=== PATIENT | female | born 1945 | race Hispanic/Latino ===

== ENCOUNTER 2017-05-28 09:00 | Outpatient (CLI) | payer MEDICARE ==
--- NOTE | 2017-05-28 10:42 | RAD ---
TWO VIEWS CHEST: COMPARISON: 06/03/16. HISTORY: Wheezing, asthma, and shortness of breath. FINDINGS: Normal cardiac silhouette. The pulmonary vessels and hilum are normal. Costophrenic angles are juanito r. The lungs are hyperinflated. There are chronic changes. No consolidation or mass. No pneumotho rax. There is diffuse bony demineralization. Stable sclerosis of the proximal right humerus. IMPRESSION: 1. Hyperinflation. 2. Chronic changes. POS: [facility]
== END 2017-05-28 09:01 | disposition home or self-care (01) ==
LOC: RAD 09:00
PROVIDERS: ATTEND Specialist
DX: J45.41 Moderate persistent asthma with (acute) exacerbation (principal); R91.8 Other nonspecific abnormal finding of lung field
CPT/HCPCS: 71046

== ENCOUNTER 2017-05-30 09:24 | Emergency (ER) | payer MEDICARE ==
[2017-05-30 10:03] LABS: #Basophils 0.1 thou/uL (0.0-0.2); #Eosinphils 0.2 thou/uL (0.0-0.7); #Lymphocytes 1.7 thou/uL (1.20-3.40); #Monocytes 0.7 thou/uL (0.11-0.59); %Basophils 1.4 % (0.0-1.0); %Lymphocytes 21.6 % (21.0-51.0); %Monocytes 9.3 % (0.0-10.0); %Neutrophils 64.7 % (42.0-75.0); Hemoglobin 11.9 g/dL (12.0-16.0); Mean Corpuscular HGB CONC 32.1 g/dL (32.0-36.0); Mean Corpuscular Hemoglobin 29.1 pg (27.0-31.0); Mean Corpuscular Volume 90.7 fl (81.0-99.0); Mean Platelet Volume 7.7 fL (7.4-10.4); Platelet Count 297 thou/uL (130-400); RBC Distribution Width 12.5 % (11.5-14.5); Red Blood Cell (RBC) Count 4.09 mill/uL (4.20-5.40); White Blood Cell (WBC) Count 7.7 thou/uL (4.8-10.8)
[2017-05-30 10:18] LABS: ALT (SGPT) 9 U/L (8-55); AST (SGOT) 14 U/L (5-34); Albumin 3.9 g/dL (3.4-4.8); Alkaline Phosphatase 67 U/L (40-150); Anion Gap 10 mmol/L (10-20); BUN (Urea Nitrogen) 9 mg/dL (9.8-20.1); Bilirubin, Total 0.5 mg/dL (0.2-1.2); CK (CPK) 128 U/L (29-168); Calc. Creatinine Clearance 0 mL/min (70-130); Calcium 9.4 mg/dL (7.8-10.44); Carbon Dioxide 28 mmol/L (23-31); Chloride 102 mmol/L (98-107); Estimated GFR-MDRD 84; Globulin 3.8 g/dL (2.4-3.5); Glucose 115 mg/dL (83-110); Lipase 20 U/L (8-78); Potassium 3.9 mmol/L (3.5-5.1); Protein, Total 7.7 g/dL (6.0-8.3); Sodium 136 mmol/L (136-145)
[2017-05-30 10:27] LABS: CKMB 2.1 ng/mL (0-6.6); Troponin I Less than 0.010 ng/mL (< 0.028)
--- NOTE | 2017-05-30 12:25 | RAD ---
PORTABLE CHEST ONE VIEW: 05/30/2017 9:59 a.m. HISTORY: Chest pain. Cough. Congestion. COMPARISON: 05/28/2017 FINDINGS: The heart size is normal. The aorta is tortuous. The lungs are well expanded without focal areas of consolidation, pneumothorax, or pleural effusions. Chronic changes are again seen. Sclerotic torrez es in the right proximal humerus are stable. IMPRESSION: No radiographic evidence of acute cardiopulmonary process. POS: [facility]
--- NOTE | 2017-06-04 15:47 | EKG ---
Test Reason : Blood Pressure : / mmHG Vent. Rate : 094 BPM Atrial Rate : 094 BPM P-R Int : 182 ms QRS Dur : 156 ms QT Int : 412 ms P-R-T Axes : 018 -23 077 degrees QTc Int : 515 ms Normal sinus rhythm Left bundle branch block Abnormal ECG Confirmed by MAGDALENA James, ENZO ([id number]), web editor KERI RAINEY ([id number]) on 06/04/2017 3:46:27 PM Referred By: Confirmed By:ENZO NICHOLS M.D.
== END 2017-05-30 11:49 | disposition home or self-care (01) ==
LOC: ERS 09:24
DX: J40 Bronchitis, not specified as acute or chronic (principal); R59.0 Localized enlarged lymph nodes; E78.5 Hyperlipidemia, unspecified; I10 Essential (primary) hypertension; Z79.899 Other long term (current) drug therapy
CPT/HCPCS: 36415; 71045; 80053; 82550; 82553; 83690; 83880; 84484; 85025; 93005; 94760

== ENCOUNTER 2017-12-06 09:09 | Outpatient (CLI) | payer MEDICARE ==
--- NOTE | 2017-12-06 10:45 | BD ---
BONE DENSITOMETRY: INDICATION: A 72-year-old female for postmenopausal osteoporosis screening. FINDINGS: Lumbar Spine: BMD (g/cm2) L1 0.914 T-Score: -0.7 L2 9,733 T-Score: -1.8 L3 0.864 T-Score: -2.0 L4 0.912 T-Score: -1.4 L1-L4 0.882 T-Score: -1.5 Comparison to multiple prior yearly bone mineral density studies made. Lumbar spine density in 2017 was recorded at 0.912. In 2015 0.899, in 2014 0.873, in 2013 0.832. Femoral Neck: 0.717 T-Score: -1.2 Total Femur: 0.868 T-Score: -0.6 Femoral neck density in 2017 0.738. In 2015 0.716, in 2014 0.713, in 2013 0.709. Impression: Bone mineral density of the lumbar spine and femoral neck continues to show osteopenia. Slight loss of density from 2017, although densities are stable from 2016. Ten-year fracture risk for a major osteoporotic fracture 5.4%. Hip fracture: 0.8%. POS: [facility]
== END 2017-12-06 09:10 | disposition home or self-care (01) ==
LOC: BICMAMMO 09:09
PROVIDERS: ATTEND Family Medicine
DX: Z12.31 Encounter for screening mammogram for malignant neoplasm of breast (principal); Z13.820 Encounter for screening for osteoporosis; M85.89 Other specified disorders of bone density and structure, multiple sites; R92.1 Mammographic calcification found on diagnostic imaging of breast; Z80.3 Family history of malignant neoplasm of breast
CPT/HCPCS: 77063; 77067; 77080

== ENCOUNTER 2018-11-06 12:30 | Outpatient (CLI) | payer MEDICARE ==
--- NOTE | 2018-11-06 14:45 | RAD ---
TWO VIEW CHEST: 11/06/18 COMPARISON: 05/30/17 INDICATION: Chest wall contusion. FINDINGS: There is interstitial opacification of the lungs bilaterally. Cardiac silhouette is prominent and the re is mild prominence of the pulmonary vasculature. Patchy bibasilar densities are seen. There is sta ble sclerotic density of the proximal right humerus. Chest is otherwise similar. IMPRESSION: Findings of CHF. Reference separate dictation from left rib report for additional detail. POS: [facility]
--- NOTE | 2018-11-06 14:45 | RAD ---
LEFT RIB SERIES: Date: 11/06/18 INDICATION: Chest wall contusion. Pain. FINDINGS: No displaced left rib fracture is visualized. No underlying pleural based density of significance wit hin the left hemithorax. IMPRESSION: No displaced left rib fracture. POS: [facility]
== END 2018-11-06 12:31 | disposition home or self-care (01) ==
LOC: BICRAD 12:30
PROVIDERS: ATTEND Family Medicine
DX: S20.219A Contusion of unspecified front wall of thorax, initial encounter (principal); R07.89 Other chest pain; I50.9 Heart failure, unspecified
CPT/HCPCS: 71046

== ENCOUNTER 2018-12-10 08:49 | Outpatient (CLI) | payer MEDICARE ==
--- NOTE | 2018-12-10 09:43 | BD ---
EXAM: DEXA bone density examination HISTORY: 73-year-old postmenopausal female for screening COMPARISON: None FINDINGS: L1--bone mineral density 0.974 g/sq cm; T score -0.1 L2--bone mineral density 0.934 g/sq cm; T score -0.9 L3--bone mineral density 0.934 g/sq cm; T score -1.4 L4--bone mineral density 0.884 g/sq cm; T score -1.6 Total L1-L4--bone mineral density 0.928 g/sq cm; T score -1.1 Left femoral neck--bone mineral density0.716; T score -1.2 Total proximal left femur--bone mineral density 0.894; T score -0.4 IMPRESSION: Osteopenia This patient has a 10 year WHO fracture risk of a major osteoporotic fracture of 9.8% and of a hip fracture of 1.5%.
--- NOTE | 2018-12-10 09:54 | MMO ---
Bilateral MAMMO Bilat Screen [facility]. CLINICAL HISTORY: Patient is 73 years old and is seen for screening. The patient has the following family history of breast cancer: niece, at age 29, malignant (generic). The patient has no personal history of cancer. VIEWS: The views performed were: bilateral craniocaudal with tomosynthesis and bilateral mediolateral oblique with tomosynthesis. FILMS COMPARED: The present examination has been compared to prior imaging studies performed at [facility] on 10/30/2014, 11/04/2015, 12/05/2016 and 12/06/2017. This study has been interpreted with the assistance of computer-aided detection. MAMMOGRAM FINDINGS: There are scattered fibroglandular densities. There are stable benign appearing calcifications seen in both breasts. There are no suspicious masses, suspicious calcifications, or new areas of architectural distortion. IMPRESSION: THERE IS NO MAMMOGRAPHIC EVIDENCE OF MALIGNANCY. A ROUTINE FOLLOW-UP MAMMOGRAM IN 1 YEAR IS RECOMMENDED. THE RESULTS OF THIS EXAM WERE SENT TO THE PATIENT. ACR BI-RADS Category 2 - Benign finding MAMMOGRAPHY NOTE: 1. A negative mammogram report should not delay a biopsy if a dominant of clinically suspicious mass is present. 2. Approximately 10% to 15% of breast cancers are not detected by mammography. 3. Adenosis and dense breasts may obscure an underlying neoplasm. Reported by: AMY DONG MD Electonically Signed: [id number]
== END 2018-12-10 08:50 | disposition home or self-care (01) ==
LOC: BICMAMMO 08:49
PROVIDERS: ATTEND Family Medicine
DX: Z12.31 Encounter for screening mammogram for malignant neoplasm of breast (principal); M85.89 Other specified disorders of bone density and structure, multiple sites; Z80.3 Family history of malignant neoplasm of breast
CPT/HCPCS: 77063; 77067; 77080

== ENCOUNTER 2019-12-16 08:52 | Outpatient (CLI) | payer MEDICARE ==
--- NOTE | 2019-12-16 09:34 | BD ---
EXAM: DEXA bone density examination HISTORY: 74-year-old postmenopausal female for screening COMPARISON: 12/10/2018 FINDINGS: L1--bone mineral density 1.027 g/sq cm; T score 0.3 L2--bone mineral density 0.98 g/sq cm; T score -0.4 L3--bone mineral density 0.980 g/sq cm; T score -0.9 L4--bone mineral density 0.956 g/sq cm; T score -1.0 Total L1-L4--bone mineral density 0.984 g/sq cm; T score -0.6 Left femoral neck--bone mineral density0.713; T score -1.2 Total proximal left femur--bone mineral density 0.893; T score -0.4 IMPRESSION: Osteopenia. This patient has a 10 year WHO fracture risk of a major osteoporotic fracture of 5.7% and of a hip fracture of 0.9%. When compared to the prior examination, the bone density in the spine is increased approximately 6%.
--- NOTE | 2019-12-16 09:55 | MMO ---
Bilateral MAMMO Bilat Screen [facility]. CLINICAL HISTORY: Patient is 74 years old and is seen for screening. The patient has the following family history of breast cancer: niece, at age 29, malignant (generic). The patient has no personal history of cancer. VIEWS: The views performed were: bilateral craniocaudal with tomosynthesis and bilateral mediolateral oblique with tomosynthesis. FILMS COMPARED: The present examination has been compared to prior imaging studies performed at [facility] on 11/04/2015, 12/05/2016, 12/06/2017 and 12/10/2018. This study has been interpreted with the assistance of computer-aided detection. MAMMOGRAM FINDINGS: There are scattered fibroglandular densities. Cluster of microcalcifications with increasing number since prior exam retroareolar right breast. In the left breast, there are no suspicious masses, calcifications or areas of architectural distortion. IMPRESSION: FINDING IN THE RIGHT BREAST REQUIRES ADDITIONAL EVALUATION. MAGNIFICATION VIEWS ARE RECOMMENDED. THE RESULTS OF THIS EXAM WERE SENT TO THE PATIENT. ACR BI-RADS Category 0 - Incomplete: Need additional imaging evaluation. [facility] will notify the patient of the need for additional imaging services. MAMMOGRAPHY NOTE: 1. A negative mammogram report should not delay a biopsy if a dominant of clinically suspicious mass is present. 2. Approximately 10% to 15% of breast cancers are not detected by mammography. 3. Adenosis and dense breasts may obscure an underlying neoplasm. Reported by: LETA SIGALA MD Electonically Signed: [id number]
== END 2019-12-16 08:53 | disposition home or self-care (01) ==
LOC: BICMAMMO 08:52
PROVIDERS: ATTEND Family Medicine
DX: Z12.31 Encounter for screening mammogram for malignant neoplasm of breast (principal); M85.89 Other specified disorders of bone density and structure, multiple sites; Z80.3 Family history of malignant neoplasm of breast
CPT/HCPCS: 77063; 77067; 77080

== ENCOUNTER 2019-12-24 09:07 | Outpatient (CLI) | payer MEDICARE ==
--- NOTE | 2019-12-24 09:45 | MMO ---
Right Breast MAMMO Unilat Diag [facility]. CLINICAL HISTORY: Patient is 74 years old and is seen for additional evaluation requested from prior study. The patient has the following family history of breast cancer: niece, at age 29, malignant (generic). The patient has no personal history of cancer. VIEWS: The views performed were: right craniocaudal spot compression magnification; right mediolateral spot compression magnification; and right mediolateral with tomosynthesis. FILMS COMPARED: The present examination has been compared to prior imaging studies performed at [facility] on 12/05/2016, 12/06/2017, 12/10/2018 and 12/16/2019. This study has been interpreted with the assistance of computer-aided detection. MAMMOGRAM FINDINGS: There are scattered fibroglandular densities. THE CLUSTER OF CALCS IN THE RIGHT RETROAEROLAR BREAST HAVE INCRESED IN NUMBER AND APPEAR INDETERMINATE. IMPRESSION: FINDING IN THE RIGHT BREAST IS SUSPICIOUS. A STEREOTACTIC BREAST BIOPSY IS RECOMMENDED. THE RESULTS OF THIS EXAM WERE SENT TO THE PATIENT. ACR BI-RADS Category 4 - Suspicious abnormality - biopsy should be considered D/W pt and her daughter in person @ 9:40 am MAMMOGRAPHY NOTE: 1. A negative mammogram report should not delay a biopsy if a dominant of clinically suspicious mass is present. 2. Approximately 10% to 15% of breast cancers are not detected by mammography. 3. Adenosis and dense breasts may obscure an underlying neoplasm. Reported by: MALINDA CALLEJAS MD Electonically Signed: [id number]
== END 2019-12-24 09:08 | disposition home or self-care (01) ==
LOC: BICMAMMO 09:07
PROVIDERS: ATTEND Family Medicine
DX: R92.1 Mammographic calcification found on diagnostic imaging of breast (principal)
CPT/HCPCS: 77065; G0279

== ENCOUNTER → 2020-01-14 | Day surgery (SDC) | payer MEDICARE ==
--- NOTE | 2020-01-14 13:42 | MMO ---
Stereotactic guided biopsy right breast microcalcifications Surgical specimen mammography Diagnostic right mammogram post biopsy HISTORY: Abnormal mammogram. Microcalcifications. FINDINGS: After explaining the procedure and answering all questions, the microcalcification cluster at the inferior aspect of the right breast was again visualized. Sterile technique, buffered local anesthesia, stereotactic guidance, and a medial approach were used to carefully advance a 10-gauge va cuum-assisted biopsy needle to the cluster of microcalcifications. A total of 8 10-gauge core vacuum-assisted specimens were obtained and eventually submitted pathology. Surgical specimen mammogram shows microcalcifications in the tissue. Localization clip was placed in the biopsy bed. Position confirmed with stereotactic imaging. Needle was removed and hemostasis obtained using direct pressure. Postprocedure diagnostic mammogram shows heterogeneously dense fibroglandular tissue. Metallic clip r eplaces the microcalcification cluster at the mid inferior aspect of the right breast. Small pockets of gas are also present around the biopsy bed. Patient tolerated the procedure well and was dismissed in good condition. IMPRESSION : Technically successful stereotactic guided biopsy right breast microcalcifications. Pathology is pend ing.
== END ==
LOC: MAMMO 06:36
PROVIDERS: ATTEND Family Medicine
PROC: 0HBT3ZX Excision of Right Breast, Percutaneous Approach, Diagnostic (ICD-10-PCS; principal; 2020-01-14)
DX: D05.11 Intraductal carcinoma in situ of right breast (principal); D24.1 Benign neoplasm of right breast; Z88.0 Allergy status to penicillin
CPT/HCPCS: 19081; 76098; 88305; 88341; 88342; 88360

== ENCOUNTER 2020-02-05 06:23 | Outpatient (CLI) | payer MEDICARE ==
[2020-02-05 09:32] LABS: #Basophils 0.1 10x3/uL (0.0-0.2); #Eosinphils 0.3 10x3/uL (0.0-0.5); #Monocytes 0.5 10x3/uL (0.0-1.1); #Neutrophils 3.2 10x3/uL (1.5-8.4); %Eosinophils 4.6 % (0.0-6.0); %Lymphocytes 33.6 % (18.0-47.0); %Monocytes 7.9 % (0.0-10.0); %Neutrophils 52.7 % (40.0-75.0); Hemoglobin 12.3 g/dL (12.0-16.0); Mean Corpuscular HGB CONC 31.9 G/DL (32.0-36.0); Mean Corpuscular Hemoglobin 29.2 PG (27.0-33.0); Mean Corpuscular Volume 91.4 fl (80.0-100.0); Platelet Count 235 10x3/uL (130-400); RBC Distribution Width 13.8 % (11.5-14.5); Red Blood Cell (RBC) Count 4.21 10x6/uL (3.90-5.20)
[2020-02-05 10:00] LABS: Anion Gap 14 mmol/L (10-20); BUN (Urea Nitrogen) 16 mg/dL (9.8-20.1); Calc. Creatinine Clearance 0 mL/min (70-130); Calcium 9.8 mg/dL (7.8-10.44); Carbon Dioxide 25 mmol/L (23-31); Chloride 105 mmol/L (98-107); Glucose 92 mg/dL (83-110); Potassium 4.3 mmol/L (3.5-5.1); Sodium 140 mmol/L (136-145)
--- NOTE | 2020-02-05 10:33 | RAD ---
PA AND LATERAL CHEST: HISTORY: Preop. COMPARISON: 11/06/2018 study. FINDINGS: Heart size and mediastinum within normal limits. Lungs are clear of infiltrates. There are arthriti c changes of the spine. IMPRESSION: No active intrathoracic disease. POS: [facility]
[2020-02-05 22:36] LABS: SARS-CoV-2 MS2 Positive; SARS-CoV-2 N Gene Negative; SARS-CoV-2 S Gene Negative; SARS-CoV-2 by NAA Not Detected (NotDetected); SARS-CoV-2 orf1ab Negative
== END 2020-02-05 06:24 | disposition home or self-care (01) ==
LOC: LABBT 06:23
PROVIDERS: ATTEND Specialist
DX: Z01.818 Encounter for other preprocedural examination (principal); D05.11 Intraductal carcinoma in situ of right breast; Z20.828 Contact with and (suspected) exposure to other viral communicable diseases
CPT/HCPCS: 71046; 80048; 85025; 93005; U0003; 87635; 93010

== ENCOUNTER 2020-02-10 06:49 | Day surgery (SDC) | payer MEDICARE ==
[2020-02-09 10:22] VITALS: BMI 31.2
[2020-02-10] MEDS ORDERED: Levofloxacin 500 mg/D5W 100 ml Premix Bag ONE (08:08)
[2020-02-10] MEDS ORDERED: Acetaminophen 500 MG TAB ONE (08:08)
[2020-02-10] MEDS ORDERED: Ketorolac Tromethamine 30 MG/ML VIAL ONE (08:08)
[2020-02-10] MEDS ORDERED: Dexamethasone 20 MG/5 ML VIAL ONE (10:01)
[2020-02-10] MEDS ORDERED: Ondansetron PF 4 MG/2 ML Vial ONE (10:01)
[2020-02-10] MEDS ORDERED: PROPOFOL 200 MG/20 ML VIAL ONE (10:01)
[2020-02-10] MEDS ORDERED: Lidocaine 2% PF 5 ML VIAL ONE (11:18)
[2020-02-10] MEDS ORDERED: Lidocaine 1% w/Epinephrine 1:100K 20 ML VIAL ONE (11:18)
[2020-02-10] MEDS ORDERED: Bupivacaine 0.25% HCL 30 ML VIAL ONE (11:18)
[2020-02-10] MEDS ORDERED: Isosulfan Blue 50 MG/5 ML VIAL ONE (11:18)
--- NOTE | 2020-02-10 11:20 | MMO ---
EXAM: MAMMO Brst Loc Dev Mammo Guide PROVIDED CLINICAL HISTORY: Right breast cancer. COMPARISON: Mammograms on 12/16/2019 and post biopsy mammogram on 01/14/2020 TECHNIQUE: After informed consent was obtained, the biopsy marker clip in the right breast was localized in a me dial lateral projection with grid localizer in place. The area was meticulously prepped in usual fashion. Skin and subcutaneous tissues were infiltrated with buffered 1% lidocaine for local anesthes ia. A 7.5 cm Manlius localization needle and guidewire were advanced followed by medial lateral projection. CC projection was then performed. The needle was slightly withdrawn, and the wire was dep loyed. Dry sterile dressing was placed. Patient tolerated the procedure well and without immediate complication. Patient was transported to o perating room for excisional biopsy. IMPRESSION: Technically successful needle and wire localization of biopsy marker clip in the right breast.
[2020-02-10] MEDS ORDERED: Fentanyl 100 MCG/2 ML VIAL ONE (11:32)
--- NOTE | 2020-02-10 12:37 | MMO ---
MAMMO Surgial Specimen History: Breast cancer Comparison: Needle localization same day Findings: The specimen contains the clip and the needle as well as a few calcifications. Impression: Satisfactory specimen containing needle, clip, and a few calcifications. Dr. Cohen notified of findings via telephone.
--- NOTE | 2020-02-11 11:55 | OP ---
DATE OF PROCEDURE: 02/10/2020 PREOPERATIVE DIAGNOSIS: Right breast ductal carcinoma in situ. POSTOPERATIVE DIAGNOSIS: Right breast ductal carcinoma in situ. OPERATION PERFORMED: Right breast needle localized lumpectomy. ANESTHESIA: General endotracheal. INDICATIONS: The patient is a 74-year-old female. She recently had a mammogram revealing suspicious calcifications within the right breast. Stereotactic biopsy was performed with removal of all the calcifications. There was found to be low-grade ductal carcinoma in situ at this location, and completion lumpectomy was therefore recommended. Mammographic needle localization had been performed preoperatively. The patient was taken to the operating room at this time for lumpectomy. DESCRIPTION OF OPERATION: Informed consent was obtained. The patient was taken to the operating room where general endotracheal anesthesia obtained with the patient in supine position. The right breast was prepped with ChloraPrep and draped in sterile fashion so as to include the localizing needle. The needle entered the breast in a medial to lateral fashion on the medial aspect of the breast aiming more or less under the nipple-areolar complex. The breast was draped in sterile fashion. Local anesthetic was infiltrated using a mixture of 1% lidocaine with epinephrine and 0.25% Marcaine. A transverse incision was created extending laterally from the needle insertion site to the infra-areolar border. Dissection was carried through the skin and subcutaneous tissue. The needle at the skin entry was at about 6 cm from the needle tip. It was determined that the localizing clip that was the target that was about 2 cm from the tip of the needle. I therefore dissected along the needle until I was about 4 cm from the needle tip. At that point, I dissected a wide lump of tissue around the localizing needle and wire. The specimen was removed intact and tagged for orientation and submitted for specimen mammography. This did reveal that the clip was present within the lesion. I was concerned that there may have been a close anterior margin and therefore, I obtained an additional anterior margin, tagged this for orientation and submitted this as well. The clip was in the initial specimen, however. Meticulous hemostasis was obtained within the wound. It was closed in layers with 3-0 Vicryl and 4-0 Monocryl. Dermabond was placed externally. Additional local anesthetic was infiltrated during closure. There were no complications. The patient tolerated the procedure well and was taken to recovery room in stable condition. Job ID: [id number]
== END 2020-02-10 13:34 | disposition home or self-care (01) ==
LOC: SDC 06:49
PROVIDERS: ATTEND Specialist
PROC: 0HBT0ZZ Excision of Right Breast, Open Approach (ICD-10-PCS; principal; 2020-02-10)
DX: D05.11 Intraductal carcinoma in situ of right breast (principal); I10 Essential (primary) hypertension; Z79.82 Long term (current) use of aspirin; Z79.84 Long term (current) use of oral hypoglycemic drugs; Z79.899 Other long term (current) drug therapy; Z88.0 Allergy status to penicillin
CPT/HCPCS: 19281; 76098; 88305; 88307; J1100; J1885; J1956; J2001; J2405; J2704; J3010; Q9968; S0020

== ENCOUNTER 2020-12-23 08:53 | Outpatient (CLI) | payer MEDICARE | END 2020-12-23 08:54 | disposition home or self-care (01) | LOC: BICMAMMO 08:53 | PROVIDERS: ATTEND Internal Medicine Hematology & Oncology | DX: M85.89 Other specified disorders of bone density and structure, multiple sites (principal); C50.111 Malignant neoplasm of central portion of right female breast | CPT/HCPCS: 77080 ==

== ENCOUNTER 2021-01-28 11:23 | Emergency (ER) | payer MEDICARE ==
[2021-01-28] MEDS ORDERED: HYDROcodone/Acetaminophen 5/325 mg Tablet ONE (12:53)
== END 2021-01-28 13:33 | disposition home or self-care (01) ==
LOC: ERS 11:23
DX: M25.511 Pain in right shoulder (principal); E78.5 Hyperlipidemia, unspecified; I10 Essential (primary) hypertension

== ENCOUNTER 2021-02-07 09:37 | Outpatient (CLI) | payer MEDICARE | END 2021-02-07 09:38 | disposition home or self-care (01) | LOC: BICMAMMO 09:37 | PROVIDERS: ATTEND Specialist | DX: D05.11 Intraductal carcinoma in situ of right breast (principal) | CPT/HCPCS: 77066; G0279 ==

== ENCOUNTER 2021-12-26 10:45 | Outpatient (CLI) | payer MEDICARE | END 2021-12-26 10:46 | disposition home or self-care (01) | LOC: BICMAMMO 10:45 | PROVIDERS: ATTEND Internal Medicine Hematology & Oncology | DX: M85.88 Other specified disorders of bone density and structure, other site (principal); M85.852 Other specified disorders of bone density and structure, left thigh; M85.851 Other specified disorders of bone density and structure, right thigh; T38.6X5A Adverse effect of antigonadotrophins, antiestrogens, antiandrogens, not elsewhere classified, initial encounter | CPT/HCPCS: 77080 ==

== ENCOUNTER 2022-02-14 10:03 | Outpatient (CLI) | payer MEDICARE | END 2022-02-14 10:04 | disposition home or self-care (01) | LOC: BICMAMMO 10:03 | PROVIDERS: ATTEND Specialist | DX: Z08 Encounter for follow-up examination after completed treatment for malignant neoplasm (principal); Z85.3 Personal history of malignant neoplasm of breast | CPT/HCPCS: 77066; G0279 ==

== ENCOUNTER 2023-03-14 08:51 | Outpatient (CLI) | payer MEDICARE | END 2023-03-14 08:52 | disposition home or self-care (01) | LOC: BICMAMMO 08:51 | PROVIDERS: ATTEND Internal Medicine Hematology & Oncology | DX: Z12.31 Encounter for screening mammogram for malignant neoplasm of breast (principal); M81.0 Age-related osteoporosis without current pathological fracture; M85.89 Other specified disorders of bone density and structure, multiple sites; Z80.3 Family history of malignant neoplasm of breast; Z98.890 Other specified postprocedural states | CPT/HCPCS: 77063; 77067; 77080 ==

== ENCOUNTER 2024-04-04 08:14 | Outpatient (CLI) | payer OTHER | END 2024-04-04 08:15 | disposition home or self-care (01) | LOC: BICMAMMO 08:14 | PROVIDERS: ATTEND Specialist | DX: Z12.31 Encounter for screening mammogram for malignant neoplasm of breast (principal); M85.851 Other specified disorders of bone density and structure, right thigh; M85.852 Other specified disorders of bone density and structure, left thigh; Z80.3 Family history of malignant neoplasm of breast; Z85.3 Personal history of malignant neoplasm of breast; Z98.890 Other specified postprocedural states; Z86.000 Personal history of in-situ neoplasm of breast | CPT/HCPCS: 77063; 77067; 77080 ==

== ENCOUNTER 2025-01-20 11:15 | Outpatient (CLI) | payer MEDICARE, OTHER | END 2025-01-20 11:16 | disposition home or self-care (01) | LOC: MRI 11:15 | PROVIDERS: ATTEND Family Medicine Sports Medicine | DX: M25.811 Other specified joint disorders, right shoulder (principal); M67.813 Other specified disorders of tendon, right shoulder; S46.011A Strain of muscle(s) and tendon(s) of the rotator cuff of right shoulder, initial encounter; S46.111A Strain of muscle, fascia and tendon of long head of biceps, right arm, initial encounter; M19.011 Primary osteoarthritis, right shoulder; D16.01 Benign neoplasm of scapula and long bones of right upper limb ==